=== PATIENT | female | born 1980 | race Caucasian/White ===

== ENCOUNTER 2020-03-31 03:20 | Emergency (ER) | payer OTHER, SELFPAY ==
[2020-03-31 03:57] LABS: #Basophils 0.1 thou/uL (0.0-0.2); #Eosinphils 0.3 thou/uL (0.0-0.7); #Lymphocytes 1.7 thou/uL (1.20-3.40); #Monocytes 0.5 thou/uL (0.11-0.59); #Neutrophils 5.2 thou/uL (1.40-6.50); %Basophils 1.3 % (0.0-1.0); %Lymphocytes 21.6 % (21.0-51.0); %Monocytes 6.7 % (0.0-10.0); %Neutrophils 66.5 % (42.0-75.0); Hemoglobin 13.7 g/dL (12.0-16.0); Mean Corpuscular HGB CONC 32.8 g/dL (32.0-36.0); Mean Corpuscular Hemoglobin 32.6 pg (27.0-31.0); Mean Corpuscular Volume 99.4 fL (78.0-98.0); Mean Platelet Volume 7.6 fL (7.4-10.4); Platelet Count 262 thou/uL (130-400); RBC Distribution Width 11.5 % (11.5-14.5); Red Blood Cell (RBC) Count 4.18 mill/uL (4.20-5.40); White Blood Cell (WBC) Count 7.9 thou/uL (4.8-10.8)
[2020-03-31 04:23] LABS: ALT (SGPT) 14 U/L (8-55); AST (SGOT) 19 U/L (5-34); Albumin 3.9 g/dL (3.5-5.0); Alkaline Phosphatase 56 U/L (40-110); Anion Gap 17 mmol/L (10-20); BUN (Urea Nitrogen) 11 mg/dL (7.0-18.7); Bilirubin, Total 0.3 mg/dL (0.2-1.2); Calc. Creatinine Clearance 0 mL/min (70-130); Carbon Dioxide 21 mmol/L (22-29); Chloride 101 mmol/L (98-107); Globulin 3.2 g/dL (2.4-3.5); Glucose 90 mg/dL (70-105); Potassium 3.4 mmol/L (3.5-5.1); Protein, Total 7.1 g/dL (6.0-8.3); Sodium 136 mmol/L (136-145)
[2020-03-31 04:32] LABS: Calcium 12.5 mg/dL (7.8-10.44)
--- NOTE | 2020-03-31 07:46 | CT ---
PRELIMINARY REPORT/[facility]/EMERGENCY AFTER HOURS PROCEDURE EXAM: CT Neck with Intravenous Contrast. CLINICAL HISTORY: Patient presents via EMS due to spitting up blood. She reports that she awoke from sleep with a sensa tion that there was something in the back of her throat. She went to the bathroom to spit it out and it was a large blood clot. She is continued to have bleeding and is still spitting blood. She den ies coughing or emesis. She has no pain. 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 She reports that over the last few days, she has had inc reased swelling to the right jaw on the right side of her neck. She feels that this is her cancer increasing in size. She has not yet started chemo or radiation treatments for her oral cancer. TECHNIQUE: Axial computed tomography images of the neck with intravenous contrast. Sagittal and coronal reformat ions performed. CONTRAST: With; ISOVUE 370,100mL COMPARISON: None provided. FINDINGS: There is a large soft tissue mass identified in the right side of the neck extending from the right o ropharyngeal region at the tongue base down to the level of the right clavicle. This measures 10.5 x 4.5 x 5 cm. There appears to be numerous peripheral lymph nodes in the right neck region. There a re a few areas of cystic change. There is significant peripheral enhancement in this region. Diffuse enhancement of the upper lesion near the tongue base is identified. The findings are consist ent with the patient's history of oral cancer. Metastatic change to the lymph nodes in this region is noted. There is some surgical changes which may be related to previous biopsy. PHARYNX: The remaining regions of the nasopharynx, oropharynx, and hypopharynx are unremarkable. LARYNX: The larynx is unremarkable. Normal epiglottis. RETROPHARYNGEAL SPACE: No retropharyngeal soft tissue swelling or gas. SALIVARY GLANDS: The parotid, submandibular, and sublingual glands are unremarkable. LYMPH NODES: Multiple enlarged lymph nodes in the right neck. Findings are consistent with metastatic change.. THYROID: The thyroid gland is unremarkable. No nodule. BONES: No acute osseous abnormality. IMPRESSION: There is a large soft tissue mass identified in the right side of the neck extending from the right o ropharyngeal region at the tongue base down to the level of the right clavicle. This measures up to 10.5 cm. Numerous suspected enlarged lymph nodes. No prior studies are available for review. Th is is a malignancy by history. No extravasation of contrast is seen. The remainder the study is appropriate for the patient's age. The airway is patent.. ELECTRONICALLY SIGNED BY: Paloma Goodson DO Mar 31, 2020 4:23:20 AM [employer] This report is intended for review by the ordering physician only, in accordance of law. If you recei ve this report in error, please call [facility] at [phone]. FINAL REPORT EXAM: CT NECK SOFT TISSUE POST CONTRAST: HISTORY:Status post surgery 8 weeks ago for resection of right tongue/oral cancer. COMPARISON:10/27/2019 CORRELATION:None FINDINGS: Brain parenchyma: No pathologic enhancement of the visualized brain parenchyma. Sinuses: Adequate aeration of the visualized paranasal sinuses and mastoid air cells. Orbits: Appropriate location of the ocular lenses. Symmetric attenuation the optic nerves and ocular rectus muscles. Retrobulbar fat is preserved. Nasopharynx:Adequate aeration. No mucosal abnormality. Oral cavity:There is evidence of postsurgical change in the right oral cavity with extension into the right neck. There are multifocal peripherally enhancing hypodensities in the right neck. These hypodensities involve the right oral cavity, right hypopharynx, right parapharyngeal fat, right carot id space, right soft tissues anterior to the carotid space, inferior to the parotid gland. There is abnormal attenuation and enhancement tracking along the residual right sternocleidomastoid muscle. Hypopharynx: Edematous changes along the right aspect of the hypopharynx, predominantly submucosal in location. Larynx: No mucosal abnormality with regards to the supraglottic, glottic and subglottic larynx. Paraspinal muscles: Abnormal right sternocleidomastoid muscle which may in part be due to postsurgica l change.. Parotid and salivary glands: Symmetric attenuation of the parotid and submandibular glands Vessels: No significant stenosis. Technique limits evaluation. Thyroid gland: Unremarkable. Spine: Vertebral body height is maintained. No fracture. No significant central canal stenosis or sig nificant neural foraminal narrowing. Limited evaluation due to technique. Lymph nodes: No evidence of lymphadenopathy by size criteria Lung apices and upper mediastinum: No acute abnormality. IMPRESSION: 1. This report is in agreement with initial report by [facility]. 2. Extensive soft tissue mass occupying the majority the right neck. Findings may represent post dot tment change/focal infection. Given the bulky nature of the abnormal soft tissue, significant malignancy/tumor burden is also suspected. Transcribed Date/Time: 03/31/2020 8:43 AM
== END 2020-03-31 08:44 | disposition short-term general hospital (02) ==
LOC: ERS 03:20
DX: C79.89 Secondary malignant neoplasm of other specified sites (principal); C14.0 Malignant neoplasm of pharynx, unspecified
CPT/HCPCS: 36415; 70491; 80053; 85025

== ENCOUNTER 2020-04-11 17:14 | Inpatient (IN) | payer OTHER ==
[2020-04-11 17:46] LABS: #Eosinphils 0.1 thou/uL (0.0-0.7); #Monocytes 0.9 thou/uL (0.11-0.59); #Neutrophils 10.6 thou/uL (1.40-6.50); %Basophils 0.2 % (0.0-1.0); %Lymphocytes 7.8 % (21.0-51.0); %Monocytes 7.4 % (0.0-10.0); %Neutrophils 83.6 % (42.0-75.0); Mean Corpuscular HGB CONC 32.5 g/dL (32.0-36.0); Mean Corpuscular Hemoglobin 32.3 pg (27.0-31.0); Mean Corpuscular Volume 99.4 fL (78.0-98.0); Mean Platelet Volume 7.7 fL (7.4-10.4); Platelet Count 239 thou/uL (130-400); RBC Distribution Width 11.3 % (11.5-14.5); Red Blood Cell (RBC) Count 4.02 mill/uL (4.20-5.40); White Blood Cell (WBC) Count 12.7 thou/uL (4.8-10.8)
[2020-04-11] MEDS ORDERED: Tranexamic Acid 1,000 MG/10 ML VIAL ONE (18:02)
[2020-04-11 18:06] LABS: ALT (SGPT) 10 U/L (8-55); AST (SGOT) 15 U/L (5-34); Albumin 4.1 g/dL (3.5-5.0); Alkaline Phosphatase 74 U/L (40-110); Anion Gap 18 mmol/L (10-20); BUN (Urea Nitrogen) 10 mg/dL (7.0-18.7); Bilirubin, Total 0.3 mg/dL (0.2-1.2); Calc. Creatinine Clearance 0 mL/min (70-130); Carbon Dioxide 30 mmol/L (22-29); Chloride 96 mmol/L (98-107); Globulin 3.8 g/dL (2.4-3.5); Glucose 107 mg/dL (70-105); Potassium 3.5 mmol/L (3.5-5.1); Protein, Total 7.9 g/dL (6.0-8.3); Sodium 140 mmol/L (136-145)
[2020-04-11 18:24] LABS: Calcium 16.6 mg/dL (7.8-10.44)
[2020-04-11] MEDS ORDERED: Calcitonin,Salmon,Synthetic 200 Units 3.7 ML PUMP L NARE SCH (20:15)
[2020-04-11] MEDS ORDERED: Zoledronic Acid 4 MG in Sodium Chloride 0.9% 100 ML IVPB SCH (20:15)
[2020-04-11] MEDS ORDERED: Ondansetron ODT 4 MG TAB PO PRN (21:27)
[2020-04-11] MEDS ORDERED: Ondansetron PF 4 MG/2 ML Vial IVP PRN (21:27)
[2020-04-11 22:18] LABS: Hemoglobin 11.2 g/dL (12.0-16.0); Mean Corpuscular HGB CONC 32.7 g/dL (32.0-36.0); Mean Corpuscular Hemoglobin 32.4 pg (27.0-31.0); Mean Corpuscular Volume 99.2 fL (78.0-98.0); Platelet Count 221 thou/uL (130-400); RBC Distribution Width 11.3 % (11.5-14.5); Red Blood Cell (RBC) Count 3.44 mill/uL (4.20-5.40); White Blood Cell (WBC) Count 11.4 thou/uL (4.8-10.8)
[2020-04-11 22:33] LABS: Band 5 % (5-11); Eosinophils 2 % (0-10); Lymphocytes 9 % (21-51); MDiff Complete? YES; Monocytes 11 % (0-10); Neutrophil 73 % (42-75)
[2020-04-11] MEDS: Sodium Chloride 0.9% 1,000 ML IV SCH (22:47)
[2020-04-12 00:24] LABS: ALT (SGPT) 8 U/L (8-55); AST (SGOT) 13 U/L (5-34); Albumin 3.5 g/dL (3.5-5.0); Alkaline Phosphatase 63 U/L (40-110); Anion Gap 14 mmol/L (10-20); BUN (Urea Nitrogen) 9 mg/dL (7.0-18.7); Bilirubin, Total 0.2 mg/dL (0.2-1.2); Calc. Creatinine Clearance 0 mL/min (70-130); Carbon Dioxide 28 mmol/L (22-29); Chloride 104 mmol/L (98-107); Globulin 3.2 g/dL (2.4-3.5); Glucose 99 mg/dL (70-105); Potassium 4.3 mmol/L (3.5-5.1); Protein, Total 6.7 g/dL (6.0-8.3); Sodium 142 mmol/L (136-145)
[2020-04-12 00:28] LABS: Calcium 14.8 mg/dL (7.8-10.44)
[2020-04-12] MEDS ORDERED: HYDROcodone/Acetaminophen 5/325 mg Tablet ONE ×2 (00:44→11:03)
[2020-04-12] MEDS: HYDROcodone/Acetaminophen 5/325 mg Tablet PO PRN ×3 (00:48→20:22)
[2020-04-12 06:35] LABS: SARS-CoV-2 MS2 Positive; SARS-CoV-2 N Gene Negative; SARS-CoV-2 S Gene Negative; SARS-CoV-2 by NAA Not Detected (NotDetected); SARS-CoV-2 orf1ab Negative
[2020-04-12] MEDS ORDERED: Enoxaparin Sodium 40 MG/0.4 ML SYRINGE SC SCH (09:00)
[2020-04-12 09:13] LABS: INR-International Normal Ratio 1.1; PTT 32.5 sec (22.9-36.1); Prothrombin Time 14.1 sec (12.0-14.7)
[2020-04-12 09:15] LABS: #Eosinphils 0.3 thou/uL (0.0-0.7); #Lymphocytes 0.9 thou/uL (1.20-3.40); #Monocytes 1.1 thou/uL (0.11-0.59); #Neutrophils 10.9 thou/uL (1.40-6.50); %Basophils 0.2 % (0.0-1.0); %Eosinophils 1.9 % (0.0-10.0); %Lymphocytes 7.1 % (21.0-51.0); %Monocytes 7.9 % (0.0-10.0); %Neutrophils 82.9 % (42.0-75.0); Hemoglobin 10.7 g/dL (12.0-16.0); Mean Corpuscular HGB CONC 32.9 g/dL (32.0-36.0); Mean Corpuscular Hemoglobin 32.9 pg (27.0-31.0); Mean Platelet Volume 8.1 fL (7.4-10.4); Platelet Count 207 thou/uL (130-400); RBC Distribution Width 11.2 % (11.5-14.5); Red Blood Cell (RBC) Count 3.24 mill/uL (4.20-5.40); White Blood Cell (WBC) Count 13.2 thou/uL (4.8-10.8)
[2020-04-12 09:23] LABS: ALT (SGPT) 7 U/L (8-55); AST (SGOT) 14 U/L (5-34); Albumin 3.2 g/dL (3.5-5.0); Alkaline Phosphatase 58 U/L (40-110); Anion Gap 13 mmol/L (10-20); BUN (Urea Nitrogen) 8 mg/dL (7.0-18.7); Bilirubin, Total 0.2 mg/dL (0.2-1.2); Calc. Creatinine Clearance 0 mL/min (70-130); Carbon Dioxide 24 mmol/L (22-29); Chloride 104 mmol/L (98-107); Globulin 2.9 g/dL (2.4-3.5); Glucose 93 mg/dL (70-105); Potassium 3.4 mmol/L (3.5-5.1); Protein, Total 6.1 g/dL (6.0-8.3); Sodium 138 mmol/L (136-145)
[2020-04-12] MEDS ORDERED: predniSONE 20 MG TAB PO SCH (09:30)
[2020-04-12] MEDS ORDERED: Furosemide 20 MG TAB PO SCH (09:30)
[2020-04-12] MEDS ORDERED: predniSONE 20 MG TAB ONE ×2 (10:41)
[2020-04-12] MEDS ORDERED: Acetaminophen 325 MG TAB ONE ×2 (11:14→11:15)
[2020-04-12] MEDS: Sodium Chloride 0.9% 1,000 ML IV SCH ×3 (15:08→18:18)
[2020-04-12 16:38] LABS: Anion Gap 16 mmol/L (10-20); BUN (Urea Nitrogen) 8 mg/dL (7.0-18.7); Calc. Creatinine Clearance 77 mL/min (70-130); Carbon Dioxide 22 mmol/L (22-29); Chloride 104 mmol/L (98-107); Glucose 105 mg/dL (70-105); Potassium 3.3 mmol/L (3.5-5.1); Sodium 139 mmol/L (136-145)
[2020-04-12 16:41] LABS: Calcium 12.6 mg/dL (7.8-10.44)
[2020-04-12] MEDS: guaiFENesin ER 600 MG TAB PO SCH (20:22)
[2020-04-12] MEDS ORDERED: Apixaban 2.5 MG TAB PO SCH (21:00)
[2020-04-13] MEDS ORDERED: Potassium Chloride 20 MEQ/100 ML PREMIX BAG IVPB SCH (06:30)
[2020-04-13] MEDS: Sodium Chloride 0.9% 1,000 ML IV SCH ×2 (07:25→15:56)
[2020-04-13] MEDS ORDERED: predniSONE 20 MG TAB PO SCH (08:00)
[2020-04-13] MEDS: Furosemide 20 MG/2 ML VIAL SLOW IVP SCH (08:43)
[2020-04-13] MEDS: methylPREDNISolone Sod Succ 40 MG VIAL IVP SCH (08:43)
[2020-04-13] MEDS: guaiFENesin ER 600 MG TAB PO SCH ×2 (08:48→23:49)
[2020-04-13] MEDS ORDERED: FLU VACC QS2020-21(6MOS UP)/PF 60 MCG/0.5 ML SYRINGE IM ONE (09:00)
[2020-04-13 12:22] VITALS: BMI 18.1
[2020-04-13] MEDS ORDERED: Sodium Chloride 0.9% 10 ML ONE (12:31)
[2020-04-13] MEDS ORDERED: Ketamine 50 MG/ML (10ML VIAL) ONE (12:50)
[2020-04-13] MEDS ORDERED: Midazolam HCl 2 mg/2 ml Vial ONE (12:50)
[2020-04-13] MEDS ORDERED: hydrALAZINE 20 MG/ML VIAL SLOW IVP PRN (15:12)
[2020-04-13] MEDS ORDERED: Promethazine HCl 25 MG/ML VIAL IM PRN (15:12)
[2020-04-13] MEDS ORDERED: Ondansetron HCl/PF 4 MG/2 ML Vial IVP PRN (15:12)
[2020-04-13] MEDS ORDERED: Promethazine HCl 25 MG/ML VIAL SLOW IVP PRN (15:12)
[2020-04-13] MEDS ORDERED: Fentanyl 100 MCG/2 ML VIAL ONE (15:24)
[2020-04-13] MEDS ORDERED: hydrALAZINE 20 MG/ML VIAL ONE (15:24)
[2020-04-13] MEDS ORDERED: Lidocaine 4% PF 5 ML AMP NEB SCH (16:00)
[2020-04-13] MEDS: Morphine 2 MG/ML VIAL SLOW IVP PRN ×2 (19:22→23:40)
[2020-04-14] MEDS: Morphine 2 MG/ML VIAL SLOW IVP PRN (04:45)
[2020-04-14 09:19] LABS: Anion Gap 10 mmol/L (10-20); BUN (Urea Nitrogen) 9 mg/dL (7.0-18.7); Calc. Creatinine Clearance 92 mL/min (70-130); Calcium 9.9 mg/dL (7.8-10.44); Carbon Dioxide 25 mmol/L (22-29); Chloride 107 mmol/L (98-107); Glucose 108 mg/dL (70-105); Potassium 2.6 mmol/L (3.5-5.1); Sodium 139 mmol/L (136-145)
[2020-04-14] MEDS ORDERED: Potassium Chloride 20 MEQ TAB PER TUBE SCH (09:45)
[2020-04-14] MEDS: Furosemide 20 MG/2 ML VIAL SLOW IVP SCH (10:03)
[2020-04-14] MEDS: methylPREDNISolone Sod Succ 40 MG VIAL IVP SCH (10:03)
[2020-04-14] MEDS: guaiFENesin ER 600 MG TAB PO SCH ×2 (10:03→20:43)
[2020-04-14 10:59] LABS: Magnesium 1.4 mg/dL (1.6-2.6)
[2020-04-14] MEDS ORDERED: Potassium Bicarbonate/Cit Ac 20 MEQ TAB PER TUBE SCH (11:00)
[2020-04-14 11:22] LABS: Phosphorus Less than 1.0 mg/dL (2.3-4.7)
[2020-04-14] MEDS ORDERED: Magnesium 2 GM/50 ML 2 GM in Premix Bag 1 BAG IVPB SCH (11:45)
[2020-04-14] MEDS ORDERED: Potassium Phosphate 15 MMOL in Sodium Chloride 0.9% 250 ML 250 ML IVPB SCH (11:45)
[2020-04-14] MEDS: Sodium Chloride 0.9% 1,000 ML IV SCH ×2 (14:02→20:44)
[2020-04-14] MEDS: HYDROcodone/Acetaminophen 5/325 mg Tablet PO PRN (20:43)
[2020-04-14 22:29] LABS: Magnesium 1.7 mg/dL (1.6-2.6)
[2020-04-14 22:33] LABS: Phosphorus Less than 1.0 mg/dL (2.3-4.7); Potassium 2.9 mmol/L (3.5-5.1)
[2020-04-14] MEDS ORDERED: Potassium Chloride 20 MEQ TAB PO SCH ×3 (23:15→23:45)
[2020-04-14] MEDS ORDERED: PHOS-NAK 1 PKT PACK PO SCH (23:30)
[2020-04-14] MEDS ORDERED: Potassium Phosphate 30 MMOL in Sodium Chloride 0.9% 250 ML 250 ML IVPB SCH (23:59)
[2020-04-15] MEDS: HYDROcodone/Acetaminophen 5/325 mg Tablet PO PRN ×3 (00:42→09:31)
[2020-04-15] MEDS: Sodium Chloride 0.9% 1,000 ML IV SCH ×2 (00:58→04:25)
[2020-04-15 07:22] VITALS: BP 129/77; TEMP 97.4
[2020-04-15 07:32] LABS: Chloride 108 mmol/L (98-107); Potassium 3.4 mmol/L (3.5-5.1)
[2020-04-15 07:33] LABS: Calcium 8.7 mg/dL (7.8-10.44); Glucose 152 mg/dL (70-105); Sodium 140 mmol/L (136-145)
[2020-04-15 07:35] LABS: Anion Gap 8 mmol/L (10-20); Carbon Dioxide 27 mmol/L (22-29)
[2020-04-15 07:37] LABS: Calc. Creatinine Clearance 101 mL/min (70-130)
[2020-04-15 07:38] LABS: BUN (Urea Nitrogen) 11 mg/dL (7.0-18.7)
[2020-04-15 07:39] LABS: Magnesium 1.5 mg/dL (1.6-2.6)
[2020-04-15 08:11] LABS: Phosphorus 1.5 mg/dL (2.3-4.7)
[2020-04-15] MEDS: guaiFENesin ER 600 MG TAB PO SCH ×2 (09:23→09:33)
== END 2020-04-15 10:35 | disposition home or self-care (01) | DRG 143 ==
LOC: ERS 17:14 → ERHOLD 20:46 → 2NO 20:48
PROVIDERS: ADMIT Family Medicine; ATTEND Family Medicine
PROC: 0W363ZZ Control Bleeding in Neck, Percutaneous Approach (ICD-10-PCS; 2020-04-11)
PROC: 0DH63UZ Insertion of Feeding Device into Stomach, Percutaneous Approach (ICD-10-PCS; principal; 2020-04-13)
DX: C76.0 Malignant neoplasm of head, face and neck (principal); E43 Unspecified severe protein-calorie malnutrition; Z68.1 Body mass index [BMI] 19.9 or less, adult; Z20.822 Contact with and (suspected) exposure to COVID-19; E83.52 Hypercalcemia; Z51.5 Encounter for palliative care; C01 Malignant neoplasm of base of tongue; E87.6 Hypokalemia; E83.39 Other disorders of phosphorus metabolism; E83.42 Hypomagnesemia
CPT/HCPCS: 36415; 80048; 80053; 83735; 84100; 85025; 85610; 85730; 87635; 93005; 96374; 96375; J0360; J0690; J1940; J2250; J2270; J2920; J3010; J3475; J3480; J3489; J3490; J7050; J7512; U0003